=== PATIENT | female | born 1965 | race Caucasian/White ===

== ENCOUNTER 2024-09-03 23:35 | Emergency (ER) | payer OTHER ==
[~2024-09-03] VITALS: Ht 154.9 cm; Wt 70.5 kg
[~2024-09-03 23:35] MED LIST: NOCURR
[2024-09-03 23:45] VITALS: BP 135/78; PULSE 75; RESP 16; TEMP 97.9; O2SAT 98
[2024-09-04] MEDS: IBUPROFEN 600 MG TABLET PO ONE (00:49)
[2024-09-04] MEDS ORDERED: IBUP-1492 PO (01:26)
== END 2024-09-04 03:11 | disposition home or self-care (01) ==
LOC: EMS 23:57
DX: S63.602A Unspecified sprain of left thumb, initial encounter (principal); Z90.710 Acquired absence of both cervix and uterus; Z79.899 Other long term (current) drug therapy; X58.XXXA Exposure to other specified factors, initial encounter; Y93.89 Activity, other specified; Y92.89 Other specified places as the place of occurrence of the external cause; Y99.8 Other external cause status
CPT/HCPCS: 99283